=== PATIENT | female | born 1995 | race Caucasian/White ===

== ENCOUNTER 2017-01-22 18:50 | Emergency (ER) | payer MEDICAID ==
[2017-01-22 19:27] VITALS: BP 117/65
[2017-01-22] MEDS ORDERED: Lidocaine 1% with EPINEPHrine 1:100,000 20 ML MDV INJECT ONE (20:20)
[2017-01-22] MEDS ORDERED: Bupivacaine 0.5% 10 ML SDV INJECT ONE (20:20)
--- NOTE | 2017-01-22 21:06 | EDM.PDOC ---
ED HPI RENAL/ - General Chief Complaint: Genitourinary Problem Stated Complaint: POSS CYST Time Seen by Provider: 01/22/17 20:07 Source of Information: Reports: Patient, Family (Mother), RN notes reviewed History Limitations: Reports: No limitations - History of Present Illness INITIAL COMMENTS - FREE TEXT/NARRATIVE: The patient states that she was seen by her Shoes Hand Sewer, Dr. Frankel, this past , 01/19/2017, for a painful swelling of her right labi majora. A Bartholin abscess fas found, and incised and drained. No drain or packing was placed. No antibiotics were prescribed. She believes a culture was obtained, but she is not sure. Sitz baths were advised, and she states that she has been performing them as directed. The patient now presents, stating that a small lump on her right labia that was near the original labial lump has now grown in size such that it is now larger than the original lump was. It is tender, and it may have spontaneously ruptured while the patient was waiting to be seen here today. No recent fever. - Related Data Allergies/ADRs: Allergies Allergy/AdvReac Type Severity Reaction Status Date / Time No Known Allergies Allergy Verified 04/23/14 06:46 Home Meds: Home Meds . 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 Neurological History: Reports: None Psychiatric History: Reports: None Endocrine/Metabolic History: Reports: None Hematologic History: Reports: None Immunologic History: Reports: None Oncologic (Cancer) History: Reports: None Dermatologic History: Reports: None - Infectious Disease History Infectious Disease History: Reports: None - Past Surgical History Head Surgeries/Procedures: Reports: None HEENT Surgical History: Reports: Oral surgery, Tonsillectomy Other HEENT Surgeries/Procedures: Tonsillectomy at age 14. [place] teeth extracted age 17 Cardiovascular Surgical History: Reports: None Respiratory Surgical History: Reports: None GI Surgical History: Reports: None Female Surgical History: Reports: None, section Endocrine Surgical History: Reports: None Neurological Surgical History: Reports: None Musculoskeletal Surgical History: Reports: ORIF Other Musculoskeletal Surgeries/Procedures:: With ORIF to arm at age 8yo. Oncologic Surgical History: Reports: None Dermatological Surgical History: Reports: None Social & Family History - Family History Family Medical History: Noncontributory - Tobacco Use Smoking Status *Q: Never Smoker Second Hand Smoke Exposure: No - Caffeine Use Caffeine Use: Reports: Soda - Alcohol Use Alcohol Use History: No - Recreational Drug Use Recreational Drug Use: No - Living Situation & Occupation Living situation: Reports: single, with significant other (Boyfriend), with family (2 kids) Occupation: employed ([employer]) ED ROS GENERAL - Review of Systems Review Of Systems: See Below Constitutional: Reports: no symptoms HEENT: Reports: No symptoms Respiratory: Reports: No Symptoms Cardiovascular: Reports: No symptoms Endocrine: Reports: no symptoms GI/Abdominal: Reports: No symptoms : Reports: no symptoms Musculoskeletal: Reports: no symptoms Skin: Reports: no symptoms Neurological: Reports: No Symptoms Psychiatric: Reports: No symptoms Hematologic/Lymphatic: Reports: no symptoms Immunologic: Reports: no symptoms ED EXAM, RENAL/ - Physical Exam Exam: See Below Exam Limited By: No limitations General Appearance: alert, WD/WN, no apparent distress Eye Exam: bilateral eye: EOMI, normal inspection Ears: normal external exam, hearing grossly normal Nose: normal inspection, no blood Throat/Mouth: Normal inspection, Normal lips, Normal voice, No airway compromise Head: atraumatic, normocephalic Neck: normal inspection, full range of motion Respiratory/Chest: no respiratory distress, lungs clear, normal breath sounds, no accessory muscle use, chest non-tender Cardiovascular: normal peripheral pulses, regular rate, rhythm, no edema, no gallop, no JVD, no murmur, no rub GI/Abdominal: normal bowel sounds, soft, non tender, no organomegaly, no distention, no abnormal bruit, no mass (Female) Exam: Other (A small incision site on the mid-right labia majora appears to be clean, with no associated signs of infection, such as swelling or erythema. Approximately 1 cm inferior to the incision site is an area of swelling and erythema with a small amount of purulent drainage emanating, consistent with a Bartholin abscess. This area is quite tender.) Extremities: normal inspection, normal range of motion, normal capillary refill Neurological: alert, oriented, normal cognition, normal gait, no motor/sensory deficits Psychiatric: normal affect Skin Exam: Warm, Dry, Intact, Normal color, No rash Lymphatic: no adenopathy ED I&D PROCEDURES - I&D Site: Right labia majora (Bartholin abscess) Skin prep: providone-iodine (betadine) Local anesthesia - Lidocaine (Xylocaine): 1% with epi Local anesthesia - Bupivicaine (Marcaine): 0.5% plain Local anesthetic volume: 2cc Area incised with: 11 blade Drainage: purulent, moderate amount Probed to break up loculations: Yes Packed with: none Sterile dressing: none Complications: No Progress/Comments: Cultures obtained. Abscess irrigated after loculations broken up. Course - Vital Signs Last Recorded V/S: Last Vital Signs Temp 37.2 C 01/22/17 19:27 Pulse 83 01/22/17 19:27 Resp 20 01/22/17 19:27 BP 117/65 01/22/17 19:27 Pulse Ox 99 01/22/17 19:27 - Orders/Labs/Meds Meds: Medications Discontinued Medications Generic Name Dose Route Start Last Admin Trade Name Blaineq PRN Reason Stop Dose Admin Bupivacaine HCl 10 ml 01/22/17 20:20 01/22/17 20:52 Sensorcaine-Mpf 0.5% INJECT 01/22/17 20:21 10 ml ONETIME ONE Administration Lidocaine/Epinephrine 20 ml 01/22/17 20:20 01/22/17 20:52 Xylocaine 1% With Epinephrine 1:100,000 INJECT 01/22/17 20:21 20 ml ONETIME ONE Administration - Re-Assessments/Exams Free Text/Narrative Re-Assessment/Exam: 01/22/17 21:13 I&D of right Bartholin abscess performed. The patient tolerated well. Cultures obtained and sent. Current guidelines do not recommend antibiotics unless the patient has a systemic illness, such as fever. Sitz baths are recommended. The patient will be following up with her Shoes Hand Sewer, Dr. Frankel, on 01/24/2017. 01/23/17 07:07 Notified by microbiology that the abscess culture obtained at [facility] on Monday , 01/20/2017 is growing pure MRSA. They state that the culture that I obtained appears to be the same, although a final identification has not yet been made. Case discussed with Dr. Nguyen, Shoes Hand Sewer on-call, who recommended no antibiotics at this time, but that if the abscess returns, that an antibiotic would likely be indicated at that time. Departure - Departure Time of Disposition: 21:14 Disposition: Home, Self-Care 01 Condition: good Clinical Impression: Bartholin's gland abscess Instructions: Abscess Referrals: Ana Maria Frankel MD [Physician] - Forms: ED Department Discharge Additional Instructions: You were seen in the emergency room tonight for painful swelling to your right lower labia. On examination, you have a right Bartholin's gland abscess. The abscess was incised, drained, loculations broken up, and the abscess irrigated. Cultures were sent. We recommend you continue to use sitz baths (sitting in warm water, with or without salt), 2 or 3 times a day, if possible. Followup with Dr. Frankel at your previously scheduled appointment Monday, . If any other problems, please do not hesitate to return to the ER.
== END 2017-01-22 21:25 | disposition home or self-care (01) ==
LOC: JD.ED 18:50
DX: N75.1 Abscess of Bartholin's gland (principal); Z98.890 Other specified postprocedural states
CPT/HCPCS: 56405; 56420; 87070; 87077; 87186; 99282-25; 99284-25

== ENCOUNTER 2025-01-05 20:50 | Inpatient (IN) | payer BC ==
[2025-01-05] MEDS: Lactated Ringers 1,000 ML IV ONE (21:44)
[2025-01-05] MEDS ORDERED: Oxytocin/0.9 % Sodium Chloride 30 UNIT/500 ML BAG IV SCH (23:45)
[2025-01-05 23:57] LABS: BASOPHILS PERCENT AUTO 0.2 % (0.0-1.0); EOSINOPHILS ABSOLUTE AUTO 0.1 K/mm3 (0.0-0.4); EOSINOPHILS PERCENT AUTO 0.8 % (0.0-6.0); HEMATOCRIT 33.4 % (37.0-47.0); HEMOGLOBIN 11.3 gm/dl (12.0-16.0); IMMATURE GRAN ABSOLUTE AUTO 0.08 K/mm3 (0.00-0.05); IMMATURE GRAN PERCENT AUTO 0.6 % (0.0-0.4); LYMPHOCYTES ABSOLUTE AUTO 3.4 K/mm3 (1.0-4.8); MEAN CORPUSCULAR HGB CONC 33.8 g/dl (32.0-36.0); MEAN CORPUSCULAR VOLUME 85.9 fl (83.0-99.0); MEAN PLATELET VOLUME 9.8 fl (9.4-12.3); MONOCYTES PERCENT AUTO 8.2 % (0.0-8.0); NEUTROPHILS PERCENT AUTO 63.2 % (41.0-71.0); PLATELET COUNT,PLT 262 K/mm3 (150-400); RED BLOOD CELL COUNT 3.89 M/mm3 (4.10-5.30)
[2025-01-06] MEDS ORDERED: Ondansetron 4 MG/2 ML SDV ONE (00:12)
[2025-01-06] MEDS ORDERED: Morphine PF 10 MG/10 ML SDV ONE (00:12)
[2025-01-06] MEDS ORDERED: ceFAZolin 2 GM Vial ONE (00:13)
[2025-01-06] MEDS ORDERED: ceFAZolin 2 GM in Sodium Chloride 0.9% 50 ML IV ONE (00:50)
[2025-01-06] MEDS: Metoclopramide 10 MG/2 ML SDV IVPUSH ONE (00:51)
[2025-01-06] MEDS: Citric Acid/Sodium Citrate Solution 30 ML Cup PO ONE (00:51)
[2025-01-06] MEDS: Lactated Ringers 1,000 ML IV SCH (00:52)
[2025-01-06] MEDS ORDERED: Oxytocin/0.9 % Sodium Chloride 30 UNIT/500 ML BAG IV ONE (01:45)
[2025-01-06] MEDS ORDERED: Methylergonovine 0.2 MG/1 ML Amp ONE (01:49)
[2025-01-06] MEDS ORDERED: Lactated Ringers 1,000 ML IV ONE (02:00)
[2025-01-06] MEDS ORDERED: diphenhydrAMINE 50 MG/ML SDV IVPUSH PRN (02:16)
[2025-01-06] MEDS ORDERED: fentaNYL 100 MCG/2 ML SDV IVPUSH PRN (02:16)
[2025-01-06] MEDS: Meperidine 50 MG/ML Vial IVPUSH PRN (02:34)
[2025-01-06] MEDS ORDERED: Dextrose 5%-Lactated Ringers 1,000 ML IV SCH (03:11)
[2025-01-06] MEDS ORDERED: Sodium Chloride 0.9% 10 ML Syringe FLUSH PRN (03:11)
[2025-01-06] MEDS ORDERED: Naloxone 0.4 MG/ML SDV IVPUSH PRN (03:11)
[2025-01-06] MEDS ORDERED: ePHEDrine 50 MG/ML SDV IVPUSH PRN (03:11)
[2025-01-06] MEDS: Ondansetron 4 MG/2 ML SDV IV PRN (03:17)
[2025-01-06] MEDS: diphenhydrAMINE 50 MG/ML SDV IVPUSH PRN (04:36)
[2025-01-06] MEDS: oxyCODONE 5 MG Tab PO PRN (07:39)
[2025-01-06] MEDS ORDERED: Ketorolac 30 MG/ML SDV IVPUSH SCH (08:15)
[2025-01-06] MEDS: Ketorolac 30 MG/ML SDV IVPUSH SCH (08:54)
[2025-01-06] MEDS: Acetaminophen 325 MG Tab PO PRN (14:55)
[2025-01-07] MEDS ORDERED: Ibuprofen 600 MG Tab PO SCH (02:15)
[2025-01-07] MEDS: Ibuprofen 600 MG Tab PO SCH (03:30)
[2025-01-07 06:17] LABS: MEAN CORPUSCULAR HEMOGLOBIN 29.1 pg (28.0-32.0); MEAN CORPUSCULAR HGB CONC 33.3 g/dl (32.0-36.0); MEAN CORPUSCULAR VOLUME 87.2 fl (83.0-99.0); MEAN PLATELET VOLUME 9.9 fl (9.4-12.3); PLATELET COUNT,PLT 221 K/mm3 (150-400); RED BLOOD CELL COUNT 3.44 M/mm3 (4.10-5.30); WHITE BLOOD CELL COUNT,WBC 9.92 K/mm3 (3.9-11.3)
[2025-01-07] MEDS: Docusate Sodium 100 MG Cap PO PRN (09:35)
[2025-01-07 16:18] VITALS: BP 112/65; PULSE 72
== END 2025-01-07 19:15 | disposition home or self-care (01) | DRG 540 ==
LOC: JD.OB 20:50 → JD.OBCHECK 20:50 → JD.OB 23:40 → OBSVTOIN 01-06 01:44 → JD.OB 01-06 01:45
PROVIDERS: ADMIT Obstetrics & Gynecology; ATTEND Obstetrics & Gynecology
PROC: 10D00Z1 Extraction of Products of Conception, Low, Open Approach (ICD-10-PCS; principal; 2025-01-06 01:10)
DX: O34.211 Maternal care for low transverse scar from previous cesarean delivery (principal); Z37.0 Single live birth; Z3A.38 38 weeks gestation of pregnancy
CPT/HCPCS: 01961; 36415; 59025; 85025; 85027; 86592; 86850; 86900; 86901; 94762; A9270-GY; J0690; J1200; J1885; J2175; J2210; J2274; J2405; J2765; J7120; J7999